=== PATIENT | female | born 1965 | race Two or more races ===

== ENCOUNTER 2024-07-21 14:36 | Outpatient (AMB) | payer MEDICAID, SELFPAY ==
--- NOTE | 2024-07-21 15:09 | PD.ORTHCLVIS ---
Vital signs 07/21/24 15:10 Height 1.57 m Height Method Stated Weight 127.119 kg Weight Measurement Method Standing Scale BMI 51.5 BP 130/79 Blood Pressure Source Automatic Cuff Blood Pressure Location Right Upper Arm Position Sitting Respiration 19 Pulse 78 Pulse Source Monitor Temp 97.8 F Temp Source Temporal Artery Scan Pulse Oximetry (%) 94 L Oxygen Delivery Method Room Air Med/Allergies Allergies & Medications Allergies No Known Allergies Allergy (Verified 07/21/24 15:12) Medication Reconciliation Unobtainable 03/06/24 [History Confirmed 07/21/24] Exam Exam Patient is in no acute distress and is cooperative with the examination today. Breathing is nonlabored. In no respiratory distress. Bilateral extremities were evaluated and demonstrates sensation intact to light touch. Palpable pedal pulses are present. No significant edema is present. Bilateral hips were examined. The patient has no pain with log roll of the hips. Internal rotation to 30 degrees and external rotation to 30 degrees is painless. Negative FADIR. The left knee was examined. The left knee is in [varus] alignment. Range of motion from [0-115] degrees. Knee is stable to varus and valgus as well as AP translation with <5mm. Patient has a [negative] McMurrays. There is [no] pain with patellofemoral compression and [no] crepitus noted. The knee is [tender] to palpation [medially]. The right knee was also examined. The right knee is in [varus] alignment. Range of motion from [0-120] degrees. Knee is stable to varus and valgus as well as AP translation with <5mm. Patient has a [negative] McMurrays. There is [no] pain with patellofemoral compression and [no] crepitus noted. The knee is [tender] to palpation [medially]. X-rays demonstrate moderate to severe arthritis on the left and moderate arthritis on the right. There is joint space narrowing and osteophytes. It is hard to visualize given her body habitus. She has gained 20 pounds since we last saw her Assessment and Plan Problem List (1) Arthritis of left knee: Status: Acute Plan: Patient is a pleasant 58-year-old female with left knee pain and left knee arthritis. We discussed nonoperative and operative options. She has arthritis on x-rays and had actually gained 20 pound since we saw her. We recommend continued conservative treatment. We will get authorization for injections at the next visit Office Procedures GNS Level of Care Nursing/Assessment Patient Status: Established Patient Nursing Assessment/Reassesment: Medication Reconciliation, Update PMH in EMR and Vital Signs Coordination of Care: Complex Care and Chronic Disease 1-5, Education Complex Pt/Fam, Consent,records obtained, informed consent, 1 Ins Authorization, Results/Orders obtained and Staff clarify orders Established Patient Charge Established Patient Point Assignment: 110 Established Patient Point Charge: EP Level 3 (80-115) MA Intake Visit Data Collection New Patient or Established: Established Patient (seen at [facility] within 3 years) Reason for Visit:: XRAYS FOLLOW UP Seen by Clinical Staff ONLY (RN/MA): No Verbal consent obtained for Telemed visit?: No Superintendent Police Required: No PCP or OBGYN visit in last 3 months: Yes Hx Now: No Do You Feel Safe at Home: Yes Authorities Contacted: N/A Questionairres Past Medical History Past Medical History Have you ever been diagnosed with any of the following: Cardiology Problems Hypercholesterolemia: Yes Hypertension: Yes Respiratory Problems Smoking: No Smoking Cessation Counseling: No Smoking Exposure: No Tobacco Use: No Stomache/Intestinal Problems Obesity: Yes Endocrine Problems Diabetes Mellitus Type 2: Yes Subjective Visit Visit for: follow up visit, knee and x-rays Immunization / Flu Flu Vaccine in the Last 12 Months: No Flu Vaccine Exclusion Criteria: No Exclusion Criteria History of Present Illness Chief complaint: Bilateral knee pain Rosalinda is a pleasant 58-year-old female with bilateral knee pain and bilateral knee arthritis. He does have morbid obesity is better antithyroid issue. She did get new x-rays today. It demonstrates moderate arthritis on the left and mild to moderate arthritis on the right Personal History Occupation: UNEMPLOYED Red flag PMH: smoker and BMI BMI Counceling provided: Yes Pain Pain level (0-10): 6 Pain duration: ALL DAY Pain location: inside (medial), outside (lateral) and anterior Pain quality: sharp, dull and aching Pain timing: increases with activity Associated signs & symptoms: weakness Ambulatory data Ambulatory device: none Treatments Improvement with previous injections: No Improvement with PT: No Improvement with NSAIDS: no Review of Systems Review of Systems: All systems negative unless otherwise noted in HPI.
[2024-07-21 15:10] VITALS: BP 130/79; PULSE 78; RESP 19; TEMP 36.6; O2SAT 94; BMI 51.5
== END 2024-07-21 15:14 | disposition home or self-care (01) ==
PROVIDERS: PCP Physician Assistant; Referring Provider Physician Assistant; Supervising Provider Orthopaedic Surgery Adult Reconstructive Orthopaedic Surgery; Visit Provider Orthopaedic Surgery Adult Reconstructive Orthopaedic Surgery
DX: M17.0 Bilateral primary osteoarthritis of knee (principal); M25.562 Pain in left knee; M25.561 Pain in right knee; E66.01 Morbid (severe) obesity due to excess calories; Z68.43 Body mass index [BMI] 50.0-59.9, adult; I10 Essential (primary) hypertension; E78.00 Pure hypercholesterolemia, unspecified; E11.9 Type 2 diabetes mellitus without complications
CPT/HCPCS: 99213; G0463

== ENCOUNTER 2024-09-17 14:08 | Outpatient (AMB) | payer MEDICAID, SELFPAY ==
--- NOTE | 2024-09-17 14:32 | PD.ORTHCLVIS ---
Vital signs 09/17/24 14:39 Height 1.57 m Height Method Stated Weight 130.294 kg Weight Measurement Method Standing Scale BMI 52.8 BP 126/72 Blood Pressure Source Automatic Cuff Blood Pressure Location Right Upper Arm Position Sitting Respiration 18 Pulse 93 Pulse Source Monitor Temp 98.2 F Temp Source Temporal Artery Scan Oxygen Delivery Method Room Air Med/Allergies Allergies & Medications Allergies No Known Allergies Allergy (Verified 09/17/24 14:39) Medication Reconciliation Unobtainable 03/06/24 [History Confirmed 09/17/24] Exam Exam Patient is in no acute distress and is cooperative with the examination today. Breathing is nonlabored. In no respiratory distress. Bilateral extremities were evaluated and demonstrates sensation intact to light touch. Palpable pedal pulses are present. No significant edema is present. Bilateral hips were examined. The patient has no pain with log roll of the hips. Internal rotation to 30 degrees and external rotation to 30 degrees is painless. Negative FADIR. The left knee was examined. The left knee is in [varus] alignment. Range of motion from [0-115] degrees. Knee is stable to varus and valgus as well as AP translation with <5mm. Patient has a [negative] McMurrays. There is [no] pain with patellofemoral compression and [no] crepitus noted. The knee is [tender] to palpation [medially]. The right knee was also examined. The right knee is in [varus] alignment. Range of motion from [0-120] degrees. Knee is stable to varus and valgus as well as AP translation with <5mm. Patient has a [negative] McMurrays. There is [no] pain with patellofemoral compression and [no] crepitus noted. The knee is [tender] to palpation [medially]. X-rays demonstrate moderate to severe arthritis on the left and moderate arthritis on the right. There is joint space narrowing and osteophytes. It is hard to visualize given her body habitus. She has gained 20 pounds since we last saw her Assessment and Plan Problem List (1) Arthritis of left knee: Status: Acute Plan: Patient is a pleasant 58-year-old female with left knee pain and left knee arthritis. We discussed nonoperative and operative options. She has arthritis on x-rays and had actually gained 20 pound since we saw her. We recommend continued conservative treatment. Recommend knee cortisone injections as patient would like to proceed with conservative treatment at this time. The risks and benefits of the procedure were reviewed with the patient and patient gave verbal consent to continue with the procedure. Procedure: performed by Dr. Madrid Using sterile technique the Bilateral knees were thoroughly prepped with alcohol, and approximately 1 cc of Kenalog 40 mg/mL and 4 cc of 1% lidocaine was injected into each knee without resistance into the medial tibial femoral joint space. The patient tolerated the procedure. Office Procedures GNS Level of Care Nursing/Assessment Patient Status: Established Patient Nursing Assessment/Reassesment: Medication Reconciliation, Update PMH in EMR and Vital Signs Coordination of Care: Complex Care and Chronic Disease 1-5, Education Complex Pt/Fam, Consent,records obtained, informed consent, Results/Orders obtained and Staff clarify orders Established Patient Charge Established Patient Point Assignment: 95 Established Patient Point Charge: EP Level 3 (80-115) Surgical Proc/IM SQ injection Major Surgical Procedure: Yes (BILATERAL KNEE INJECTION) Medication Given Medication Given Medication Given: Yes Documented Dose Given: 8 Route: Infiitration Medication Given Medication Given Medication Given: Yes Documented Dose Given: 8 Route: Infiitration Office Meds Xylocaine 10 mg/mL (1 %) injection solution Performing Provider: Kristian Madrid MD Performing Location: [facility] Administered by: Kristian Madrid MD on 09/17/24 14:40 Dose Route Admin Location Dispensed Lot Number Expiration Date [facility] Atomic Welder 40 mL Infiltration 40 mL [id number] [facility] triamcinolone acetonide 40 mg/mL suspension for injection Performing Provider: Kristian Madrid MD Performing Location: [facility] Administered by: Kristian Madrid MD on 09/17/24 14:40 Dose Route Admin Location Dispensed Lot Number Expiration Date [facility] [employer] Welder 80 mg intra-articular 2 mL [id number] [employer]ENTER[employer] MA Intake Visit Data Collection New Patient or Established: Established Patient (seen at [facility] within 3 years) Reason for Visit:: BILATERAL KNEE INJECTION Seen by Clinical Staff ONLY (RN/MA): No Verbal consent obtained for Telemed visit?: No 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 PCP or OBGYN visit in last 3 months: Yes Hx Now: No Do You Feel Safe at Home: Yes Authorities Contacted: N/A Questionairres Past Medical History Past Medical History Have you ever been diagnosed with any of the following: Cardiology Problems Hypercholesterolemia: Yes Hypertension: Yes Respiratory Problems Smoking: No Smoking Cessation Counseling: No Smoking Exposure: No Tobacco Use: No Stomache/Intestinal Problems Obesity: Yes Endocrine Problems Diabetes Mellitus Type 2: Yes Subjective Visit Visit for: follow up visit, knee and x-rays Immunization / Flu Flu Vaccine in the Last 12 Months: No Flu Vaccine Exclusion Criteria: No Exclusion Criteria History of Present Illness Chief complaint: Bilateral knee pain Rosalinda is a pleasant 58-year-old female with bilateral knee pain and bilateral knee arthritis. He does have morbid obesity is better antithyroid issue. She would like new injections today as the last ones did work Personal History Occupation: UNEMPLOYED Red flag PMH: smoker and BMI BMI Counceling provided: Yes Pain Pain level (0-10): 6 Pain duration: ALL DAY Pain location: inside (medial), outside (lateral) and anterior Pain quality: sharp, dull and aching Pain timing: increases with activity Associated signs & symptoms: weakness Ambulatory data Ambulatory device: none Treatments Improvement with previous injections: No Improvement with PT: No Improvement with NSAIDS: no Review of Systems Review of Systems: All systems negative unless otherwise noted in HPI.
[2024-09-17 14:39] VITALS: BP 126/72; PULSE 93; RESP 18; TEMP 36.8; BMI 52.8
== END 2024-09-17 14:46 | disposition home or self-care (01) ==
LOC: HODSRG 14:08
PROVIDERS: PCP Physician Assistant; Referring Provider Physician Assistant; Supervising Provider Orthopaedic Surgery Adult Reconstructive Orthopaedic Surgery; Visit Provider Orthopaedic Surgery Adult Reconstructive Orthopaedic Surgery
DX: M17.0 Bilateral primary osteoarthritis of knee (principal); M25.561 Pain in right knee; I10 Essential (primary) hypertension; E78.00 Pure hypercholesterolemia, unspecified; E66.01 Morbid (severe) obesity due to excess calories; Z68.43 Body mass index [BMI] 50.0-59.9, adult
CPT/HCPCS: 20610; 99213; J3301; J3490; G0463

== ENCOUNTER 2025-01-19 13:02 | Outpatient (AMB) | payer MEDICAID, SELFPAY ==
--- NOTE | 2025-01-19 13:12 | PD.ORTHCLVIS ---
Vital signs 01/19/25 13:20 Height 1.57 m Height Method Measured Weight 126.24 kg Weight Measurement Method Standing Scale BMI 51.2 BP 147/86 H Blood Pressure Source Automatic Cuff Blood Pressure Location Left Upper Arm Position Sitting Respiration 18 Pulse 95 Pulse Source Monitor Temp 97.4 F Temp Source Temporal Artery Scan Pulse Oximetry (%) 97 Oxygen Delivery Method Room Air Med/Allergies Allergies & Medications Allergies No Known Allergies Allergy (Verified 01/19/25 13:21) Medication Reconciliation Unobtainable 03/06/24 [History Confirmed 01/19/25] Exam Exam Patient is in no acute distress and is cooperative with the examination today. Breathing is nonlabored. In no respiratory distress. Bilateral extremities were evaluated and demonstrates sensation intact to light touch. Palpable pedal pulses are present. No significant edema is present. Bilateral hips were examined. The patient has no pain with log roll of the hips. Internal rotation to 30 degrees and external rotation to 30 degrees is painless. Negative FADIR. The left knee was examined. The left knee is in [varus] alignment. Range of motion from [0-115] degrees. Knee is stable to varus and valgus as well as AP translation with <5mm. Patient has a [negative] McMurrays. There is [no] pain with patellofemoral compression and [no] crepitus noted. The knee is [tender] to palpation [medially]. The right knee was also examined. The right knee is in [varus] alignment. Range of motion from [0-120] degrees. Knee is stable to varus and valgus as well as AP translation with <5mm. Patient has a [negative] McMurrays. There is [no] pain with patellofemoral compression and [no] crepitus noted. The knee is [tender] to palpation [medially]. X-rays demonstrate moderate to severe arthritis on the left and moderate arthritis on the right. There is joint space narrowing and osteophytes. It is hard to visualize given her body habitus. She has gained 20 pounds since we last saw her Assessment and Plan Problem List (1) Arthritis of left knee: Status: Acute Plan: Patient is a pleasant 58-year-old female with left knee pain and left knee arthritis. We discussed nonoperative and operative options. She has arthritis on x-rays and had actually gained 20 pound since we saw her. We recommend continued conservative treatment. Recommend knee cortisone injections as patient would like to proceed with conservative treatment at this time. The risks and benefits of the procedure were reviewed with the patient and patient gave verbal consent to continue with the procedure. Procedure: performed by Dr. Madrid Using sterile technique the Bilateral knees were thoroughly prepped with alcohol, and approximately 1 cc of Kenalog 40 mg/mL and 4 cc of 1% lidocaine was injected into each knee without resistance into the medial tibial femoral joint space. The patient tolerated the procedure. Office Procedures GNS Level of Care Nursing/Assessment Patient Status: Established Patient Nursing Assessment/Reassesment: Medication Reconciliation, Orthostatic Vitals, Update PMH in EMR and Vital Signs Coordination of Care: Complex Care and Chronic Disease 1-5, Education Complex Pt/Fam, Consent,records obtained, informed consent, Results/Orders obtained and Staff clarify orders Established Patient Charge Established Patient Point Assignment: 105 Established Patient Point Charge: EP Level 3 (80-115) Surgical Proc/IM SQ injection Major Surgical Procedure: Yes (BILATERAL KNEE INJECTION) Medication Given Medication Given Medication Given: Yes Documented Dose Given: 1 Route: Infiitration Medication Given Medication Given Medication Given: Yes Documented Dose Given: 1 Route: Infiitration Medication Given Medication Given Medication Given: Yes Documented Dose Given: 4 Route: Infiitration Medication Given Medication Given Medication Given: Yes Documented Dose Given: 4 Route: Infiitration Office Meds methylprednisolone acetate 80 mg/mL suspension for injection Performing Provider: Kristian Madrid MD Performing Location: [facility] Administered by: Kristian Madrid MD on 01/19/25 13:42 Dose Route Admin Location Dispensed Lot Number Expiration Date [facility] Swimming Professor 80 mg intra-articular 1 mL [id number] 06/25/26 0887-4268-93 [employer] methylprednisolone acetate 80 mg/mL suspension for injection Performing Provider: Kristian Madrid MD Performing Location: [facility] Administered by: Kristian Madrid MD on 01/19/25 13:42 Dose Route Admin Location Dispensed Lot Number Expiration Date [facility] Swimming Professor 80 mg intra-articular 1 mL [id number] 06/25/26 5145-4270-35 [employer] ropivacaine (PF) 2 mg/mL (0.2 %) injection solution Performing Provider: Kristian Madrid MD Performing Location: [facility] Administered by: Kristian Madrid MD on 01/19/25 13:42 Dose Route Admin Location Dispensed Lot Number Expiration Date [place] Swimming Professor 20 mL Infiltration 20 mL [id number] 06/25/27 85251-787-55 [employer] ropivacaine (PF) 2 mg/mL (0.2 %) injection solution Performing Provider: Kristian Madrid MD Performing Location: [facility] Administered by: Kristian Madrid MD on 01/19/25 13:42 Dose Route Admin Location Dispensed Lot Number Expiration Date [place] Swimming Professor 20 mL Infiltration 20 mL [id number] 06/25/27 95373-799-75 [facility] Intake Visit Data Collection New Patient or Established: Established Patient (seen at [facility] within 3 years) Reason for Visit:: BILATERAL KNEE INJECTION Seen by Clinical Staff ONLY (RN/MA): No Verbal consent obtained for Telemed visit?: No 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: No PCP or OBGYN visit in last 3 months: Yes Hx Now: No Do You Feel Safe at Home: Yes Authorities Contacted: N/A Questionairres Past Medical History Past Medical History Have you ever been diagnosed with any of the following: Cardiology Problems Hypercholesterolemia: Yes Hypertension: Yes Respiratory Problems Smoking: No Smoking Cessation Counseling: No Smoking Exposure: No Tobacco Use: No Stomache/Intestinal Problems Obesity: Yes Endocrine Problems Diabetes Mellitus Type 2: Yes Subjective Visit Visit for: follow up visit, knee and x-rays Immunization / Flu Flu Vaccine in the Last 12 Months: No Flu Vaccine Exclusion Criteria: No Exclusion Criteria History of Present Illness Chief complaint: Bilateral knee pain Rosalinda is a pleasant 58-year-old female with bilateral knee pain and bilateral knee arthritis. He does have morbid obesity is better antithyroid issue. She would like new injections today as the last ones did work Personal History Occupation: UNEMPLOYED Red flag PMH: smoker and BMI BMI Counceling provided: Yes Pain Pain level (0-10): 6 Pain duration: ALL DAY Pain location: inside (medial), outside (lateral) and anterior Pain quality: sharp, dull and aching Pain timing: increases with activity Associated signs & symptoms: weakness Ambulatory data Ambulatory device: none Treatments Improvement with previous injections: No Improvement with PT: No Improvement with NSAIDS: no Review of Systems Review of Systems: All systems negative unless otherwise noted in HPI.
[2025-01-19 13:20] VITALS: BP 147/86; PULSE 95; RESP 18; TEMP 36.3; O2SAT 97; BMI 51.2
== END 2025-01-19 13:46 | disposition home or self-care (01) ==
PROVIDERS: PCP Physician Assistant; Referring Provider Physician Assistant; Supervising Provider Orthopaedic Surgery Adult Reconstructive Orthopaedic Surgery; Visit Provider Orthopaedic Surgery Adult Reconstructive Orthopaedic Surgery
DX: M17.0 Bilateral primary osteoarthritis of knee (principal); M25.562 Pain in left knee; M25.561 Pain in right knee; E66.01 Morbid (severe) obesity due to excess calories; Z68.43 Body mass index [BMI] 50.0-59.9, adult; Z71.3 Dietary counseling and surveillance; E11.9 Type 2 diabetes mellitus without complications; I10 Essential (primary) hypertension; E78.00 Pure hypercholesterolemia, unspecified
CPT/HCPCS: 20610; 99213; J1010; J2795; G0463

== ENCOUNTER 2025-04-27 12:53 | Outpatient (AMB) | payer MEDICAID, SELFPAY ==
--- NOTE | 2025-04-27 13:14 | ORTHONT_ITS ---
Vital signs 04/27/25 13:17 Height 1.57 m Height Method Stated Weight 124.823 kg Weight Measurement Method Standing Scale BMI 50.6 BP 123/64 Blood Pressure Source Automatic Cuff Blood Pressure Location Left Lower Arm Position Sitting Respiration 18 Pulse 94 Pulse Source Monitor Temp 97.3 F Temp Source Temporal Artery Scan Pulse Oximetry (%) 91 L Oxygen Delivery Method Room Air Med/Allergies Allergies & Medications Allergies No Known Allergies Allergy (Verified 04/27/25 13:17) Medication Reconciliation Unobtainable 03/06/24 [History Confirmed 04/27/25] Exam Exam Patient is in no acute distress and is cooperative with the examination today. Breathing is nonlabored. In no respiratory distress. Bilateral extremities were evaluated and demonstrates sensation intact to light touch. Palpable pedal pulses are present. No significant edema is present. Bilateral hips were examined. The patient has no pain with log roll of the hips. Internal rotation to 30 degrees and external rotation to 30 degrees is painless. Negative FADIR. The left knee was examined. The left knee is in [varus] alignment. Range of motion from [0-115] degrees. Knee is stable to varus and valgus as well as AP translation with <5mm. Patient has a [negative] McMurrays. There is [no] pain with patellofemoral compression and [no] crepitus noted. The knee is [tender] to palpation [medially]. The right knee was also examined. The right knee is in [varus] alignment. Range of motion from [0-120] degrees. Knee is stable to varus and valgus as well as AP translation with <5mm. Patient has a [negative] McMurrays. There is [no] pain with patellofemoral compression and [no] crepitus noted. The knee is [tender] to palpation [medially]. X-rays demonstrate moderate to severe arthritis on the left and moderate arthritis on the right. There is joint space narrowing and osteophytes. It is hard to visualize given her body habitus. She has gained 20 pounds since we last saw her Assessment and Plan Problem List (1) Arthritis of left knee: Status: Acute Plan: Patient is a pleasant 58-year-old female with left knee pain and left knee arthritis. We discussed nonoperative and operative options. We recommend continued conservative treatment. Recommend knee cortisone injections as patient would like to proceed with conservative treatment at this time. The risks and benefits of the procedure were reviewed with the patient and patient gave verbal consent to continue with the procedure. Procedure: performed by Dr. Madrid Using sterile technique the Bilateral knees were thoroughly prepped with alcohol, and approximately 1 cc of Kenalog 40 mg/mL and 4 cc of 1% lidocaine was injected into each knee without resistance into the medial tibial femoral joint space. The patient tolerated the procedure. Office Procedures GNS Level of Care Nursing/Assessment Patient Status: Established Patient Nursing Assessment/Reassesment: Medication Reconciliation, Update PMH in EMR and Vital Signs Coordination of Care: Complex Care and Chronic Disease 1-5, Education Complex Pt/Fam, Consent,records obtained, informed consent, 1 Ins Authorization, Results/Orders obtained and Staff clarify orders Established Patient Charge Established Patient Point Assignment: 110 Established Patient Point Charge: EP Level 3 (80-115) Surgical Proc/IM SQ injection Minor Surgical Procedure: Yes (BILATERAL KNEE INJECTION) Medication Given Medication Given Medication Given: Yes Documented Dose Given: 2 Route: Infiitration Medication Given Medication Given Medication Given: Yes Documented Dose Given: 8 Route: Infiitration Office Meds methylprednisolone acetate 80 mg/mL suspension for injection Performing Provider: Kristian Madrid MD Performing Location: [facility] Administered by: Kristian Madrid MD on 04/27/25 13:34 Dose Route Admin Location Dispensed Lot Number Expiration Date Pack age [facility] Massage Coordinator 160 mg intra-articular KNEE 2 mL [id number] 12/23/26 [address]-7 7 [id number] [employer] ropivacaine (PF) 2 mg/mL (0.2 %) injection solution Performing Provider: Kristian Madrid MD Performing Location: [facility] Administered by: Kristian Madrid MD on 04/27/25 13:34 Dose Route Admin Location Dispensed Lot Number Expiration Date Pack age [facility] Massage Coordinator 40 mL Infiltration KNEE 40 mL [id number] 06/25/27 25473-250-27 [id number] [facility] Intake Visit Data Collection New Patient or Established: Established Patient (seen at [facility] within 3 years) Reason for Visit:: BILATERAL KNEE INJECTION Seen by Clinical Staff ONLY (RN/MA): No Verbal consent obtained for Telemed visit?: No [employer] Required: No PCP or OBGYN visit in last 3 months: Yes Hx Now: No Do You Feel Safe at Home: Yes Authorities Contacted: N/A Questionairres Past Medical History Past Medical History Have you ever been diagnosed with any of the following: Cardiology Problems Hypercholesterolemia: Yes Hypertension: Yes Respiratory Problems Smoking: No Smoking Cessation Counseling: No Smoking Exposure: No Tobacco Use: No Stomache/Intestinal Problems Obesity: Yes Endocrine Problems Diabetes Mellitus Type 2: Yes Subjective Visit Visit for: follow up visit, knee and x-rays Immunization / Flu Flu Vaccine in the Last 12 Months: No Flu Vaccine Exclusion Criteria: No Exclusion Criteria History of Present Illness Chief complaint: Bilateral knee pain Rosalinda is a pleasant 58-year-old female with bilateral knee pain and bilateral knee arthritis. He does have morbid obesity is better antithyroid issue. She would like new injections today as the last ones did work Personal History Occupation: UNEMPLOYED Red flag PMH: smoker and BMI BMI Counceling provided: Yes Pain Pain level (0-10): 6 Pain duration: ALL DAY Pain location: inside (medial), outside (lateral) and anterior Pain quality: sharp, dull and aching Pain timing: increases with activity Associated signs & symptoms: weakness Ambulatory data Ambulatory device: none Treatments Improvement with previous injections: No Improvement with PT: No Improvement with NSAIDS: no Review of Systems Review of Systems: All systems negative unless otherwise noted in HPI.
[2025-04-27 13:17] VITALS: BP 123/64; PULSE 94; RESP 18; TEMP 36.3; O2SAT 91; BMI 50.6
== END 2025-04-27 13:33 | disposition home or self-care (01) ==
LOC: HODSRG 12:53
PROVIDERS: PCP Physician Assistant; Referring Provider Physician Assistant; Supervising Provider Orthopaedic Surgery Adult Reconstructive Orthopaedic Surgery; Visit Provider Orthopaedic Surgery Adult Reconstructive Orthopaedic Surgery
DX: M17.0 Bilateral primary osteoarthritis of knee (principal); M25.562 Pain in left knee; M25.561 Pain in right knee; E66.01 Morbid (severe) obesity due to excess calories; Z68.43 Body mass index [BMI] 50.0-59.9, adult; I10 Essential (primary) hypertension
CPT/HCPCS: 20610; 99213; J1010; J2795; G0463